=== PATIENT | male | born 1995 | race Caucasian/White ===

== ENCOUNTER 2020-07-17 09:11 | Emergency (ER) | payer OTHER ==
[2020-07-17 09:22] VITALS: BP 141/68; PULSE 92; TEMP 98; BMI 39.4
[2020-07-17] MEDS ORDERED: KETOROLAC TROMETHAMINE 60 MG/2 ML VIAL IM ONE (10:43)
[2020-07-17] MEDS ORDERED: KETOROLAC TROMETHAMINE 60 MG/2 ML VIAL ONE (10:46)
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
== END 2020-07-17 10:59 | disposition home or self-care (01) ==
LOC: JER 09:11
PROC: 3E0233Z Introduction of Anti-inflammatory into Muscle, Percutaneous Approach (ICD-10-PCS; principal; 2020-07-17)
DX: S39.012A Strain of muscle, fascia and tendon of lower back, initial encounter (principal); S80.11XA Contusion of right lower leg, initial encounter; V89.2XXA Person injured in unspecified motor-vehicle accident, traffic, initial encounter
CPT/HCPCS: 99284-25

== ENCOUNTER 2022-06-19 19:49 | Emergency (ER) | payer SELFPAY ==
[2022-06-19 20:54] VITALS: BP 122/82; PULSE 125; TEMP 100.5; BMI 38.3
[2022-06-19] MEDS ORDERED: IBUPROFEN 600 MG TABLET (FP) PO ONE ×2 (21:09→21:37)
[2022-06-19] MEDS ORDERED: ACETAMINOPHEN 500 MG TABLET (FP) PO ONE (21:09)
[2022-06-19] MEDS ORDERED: ACETAMINOPHEN 500 MG TABLET (FP) ONE (21:37)
== END 2022-06-19 22:26 | disposition home or self-care (01) ==
LOC: JER 19:49
DX: R05.1 Acute cough (principal); R50.9 Fever, unspecified
CPT/HCPCS: 71046-TC-FY; 99283-25